=== PATIENT | female | born 1970 | race African-American/Black ===

== ENCOUNTER 2020-03-09 02:18 | Emergency (ER) | payer MEDICAID, OTHER ==
[~2020-03-09] VITALS: Ht 152.4 cm; Wt 77.0 kg
[2020-03-09 03:12] LABS: CLARITY URINE CLOUDY (CLEAR); COLOR URINE YELLOW (YELLOW); KETONES URINE TRACE (NEGATIVE); LEUKOCYTE ESTERASE URINE TRACE (NEGATIVE); NITRITE URINE NEGATIVE (NEGATIVE); OCCULT BLOOD URINE NEGATIVE (NEGATIVE); PROTEIN URINE NEGATIVE (NEGATIVE); SPECIFIC GRAVITY URINE 1.032 (1.005-1.030); UROBILINOGEN URINE 0.2 E.U./dL (0.2-1.0)
[2020-03-09] MEDS ORDERED: MORPHINE SULFATE 4 MG/ML CPJ (NOT FOR IM USE) IV STA (03:35)
[2020-03-09] MEDS ORDERED: FAMOTIDINE 20MG/2ML VIAL IV STA (03:35)
[2020-03-09] MEDS ORDERED: SODIUM CHLORIDE 0.9% 1,000 ML IV ONE (03:35)
[2020-03-09] MEDS ORDERED: DIPHENHYDRAMINE 50MG/ML VIAL IV ONE (03:45)
[2020-03-09] MEDS ORDERED: PROMETHAZINE HCL 25MG SUPP PR ONE (03:45)
[2020-03-09] MEDS ORDERED: IOHEXOL-300 100 ML BOTTLE ONE (04:13)
[2020-03-09] MEDS ORDERED: DIATR MEGLU/DIATRIZOATE SOLN 30ML ONE (04:13)
[2020-03-09 04:34] LABS: BASOPHILS % 1.3 % (0.0-2.0); EOSINOPHILS % 3.2 % (0.0-5.0); HEMATOCRIT. 29.9 % (36.0-48.0); HEMOGLOBIN. 9.9 g/dL (12.0-16.0); LYMPHOCYTES % 50.6 % (20.0-50.0); MEAN CORPUSCULAR HEMOGLOBIN 27.9 pg (28.0-32.0); MONOCYTES % 8.3 % (2.0-8.0); NEUTROPHILS % 36.6 % (40.0-76.0); RED BLOOD CELL COUNT 3.56 mill/uL (4.2-5.4); RED CELL DISTRIBUTION WIDTH 17.3 % (11.6-14.6)
[2020-03-09 04:40] LABS: CHLORIDE 108 mEq/L (98-107)
[2020-03-09] MEDS ORDERED: FENTANYL CITRATE/PF 50MCG/ML 2ML VIAL IV ONE (04:45)
[2020-03-09 05:11] LABS: MEAN PLATELET VOLUME 7.9 fl (7.4-10.4); PLATELET 211 x1000/uL (130-400)
[2020-03-09 06:20] VITALS: BP 148/98
== END 2020-03-09 06:37 | disposition home or self-care (01) ==
LOC: ER 03:47
DX: G89.29 Other chronic pain (principal); R10.84 Generalized abdominal pain; R11.2 Nausea with vomiting, unspecified; G43.909 Migraine, unspecified, not intractable, without status migrainosus; Z86.711 Personal history of pulmonary embolism; Z88.6 Allergy status to analgesic agent; Z98.84 Bariatric surgery status; Z90.49 Acquired absence of other specified parts of digestive tract; Z79.01 Long term (current) use of anticoagulants; Z88.0 Allergy status to penicillin
CPT/HCPCS: 36415; 74177; 80053; 81003; 81025; 83605; 83690; 85025; 96361; 96374; 96375; 99285; J1200; J2270; J3010; J3490; J7030; Q9963; Q9967

== ENCOUNTER 2020-04-04 04:42 | Emergency (ER) | payer MEDICAID ==
[~2020-04-04] VITALS: Ht 152.4 cm; Wt 77.0 kg
[2020-04-04] MEDS ORDERED: SODIUM CHLORIDE 0.9% 1,000 ML IV ONE (06:54)
[2020-04-04] MEDS ORDERED: MORPHINE SULFATE 4 MG/ML CPJ (NOT FOR IM USE) IV STA (06:54)
[2020-04-04 07:29] LABS: CLARITY URINE CLEAR (CLEAR); COLOR URINE YELLOW (YELLOW); KETONES URINE NEGATIVE (NEGATIVE); LEUKOCYTE ESTERASE URINE 2+ (NEGATIVE); NITRITE URINE NEGATIVE (NEGATIVE); OCCULT BLOOD URINE NEGATIVE (NEGATIVE); PH URINE 6.5 (4.5-8.0); PROTEIN URINE NEGATIVE (NEGATIVE); SPECIFIC GRAVITY URINE 1.011 (1.005-1.030); UROBILINOGEN URINE 0.2 E.U./dL (0.2-1.0)
[2020-04-04 07:30] LABS: BASOPHILS % 1.1 % (0.0-2.0); CHLORIDE 109 mEq/L (98-107); EOSINOPHILS % 0.2 % (0.0-5.0); HEMATOCRIT. 25.3 % (36.0-48.0); HEMOGLOBIN. 8.3 g/dL (12.0-16.0); LYMPHOCYTES % 10.2 % (20.0-50.0); MEAN CORPUSCULAR HEMOGLOBIN 26.1 pg (28.0-32.0); MEAN CORPUSCULAR VOLUME 80.2 fL (81.0-99.0); MEAN PLATELET VOLUME 8.8 fl (7.4-10.4); MONOCYTES % 1.8 % (2.0-8.0); NEUTROPHILS % 86.7 % (40.0-76.0); PLATELET 210 x1000/uL (130-400); RED BLOOD CELL COUNT 3.16 mill/uL (4.2-5.4); RED CELL DISTRIBUTION WIDTH 17.4 % (11.6-14.6)
[2020-04-04 07:43] LABS: HCG SCREEN NEGATIVE
[2020-04-04] MEDS ORDERED: PROMETHAZINE HCL 25MG TABLET PO STA (07:54)
[2020-04-04] MEDS ORDERED: MORPHINE SULFATE 2 MG/ML CPJ (NOT FOR IM USE) IV ONE (08:00)
[2020-04-04 10:00] VITALS: BP 155/96
[2020-04-04] MEDS ORDERED: IOHEXOL-300 100 ML BOTTLE ONE (11:49)
== END 2020-04-04 11:07 | disposition home or self-care (01) ==
LOC: ER 04:42
DX: R10.9 Unspecified abdominal pain (principal); Z88.0 Allergy status to penicillin; Z88.6 Allergy status to analgesic agent; Z88.8 Allergy status to other drugs, medicaments and biological substances; Z90.49 Acquired absence of other specified parts of digestive tract; Z98.84 Bariatric surgery status; Z98.890 Other specified postprocedural states
CPT/HCPCS: 36415; 71045; 74177; 80053; 81003; 83690; 84703; 85025; 93005; 96361; 96374; 96376; 99285; J2270; J7030; Q0169; Q9967

== ENCOUNTER 2020-04-13 21:37 | Emergency (ER) | payer MEDICAID ==
[~2020-04-13] VITALS: Ht 152.4 cm; Wt 77.0 kg
[2020-04-14] MEDS ORDERED: MORPHINE SULFATE 4 MG/ML CPJ (NOT FOR IM USE) IV STA (01:28)
[2020-04-14] MEDS ORDERED: DIPHENHYDRAMINE 50MG/ML VIAL IV ONE (01:30)
[2020-04-14 02:53] LABS: HEMOGLOBIN. 7.8 g/dL (12.0-16.0); MEAN CORPUSCULAR VOLUME 79.7 fL (81.0-99.0); MEAN PLATELET VOLUME 7.9 fl (7.4-10.4); PLATELET 189 x1000/uL (130-400); RED BLOOD CELL COUNT 3.01 mill/uL (4.2-5.4); RED CELL DISTRIBUTION WIDTH 17.8 % (11.6-14.6)
[2020-04-14 03:00] LABS: CHLORIDE 105 mEq/L (98-107)
[2020-04-14] MEDS ORDERED: MORPHINE SULFATE 4 MG/ML CPJ (NOT FOR IM USE) IV ONE (06:00)
[2020-04-14 06:41] VITALS: BP 125/70
[2020-04-14 08:13] LABS: PLATELET ESTIMATE NORMAL
== END 2020-04-14 06:47 | disposition home or self-care (01) ==
LOC: ER 21:37
DX: I82.591 Chronic embolism and thrombosis of other specified deep vein of right lower extremity (principal); G89.29 Other chronic pain; R10.9 Unspecified abdominal pain; Z90.49 Acquired absence of other specified parts of digestive tract; Z98.890 Other specified postprocedural states; Z88.0 Allergy status to penicillin; Z88.8 Allergy status to other drugs, medicaments and biological substances; Z88.6 Allergy status to analgesic agent
CPT/HCPCS: 36415; 71045; 80053; 84484; 85025; 93005; 93971; 96374; 96375; 96376; 99285; J1200; J2270

== ENCOUNTER 2021-11-21 20:24 | Inpatient (IN) | payer MEDICAID ==
[~2021-11-21] VITALS: Ht 152.4 cm; Wt 68.0 kg
[2021-11-21] MEDS ORDERED: MORPHINE SULFATE 4 MG/ML CPJ (NOT FOR IM USE) IV ONE (23:00)
[2021-11-21] MEDS ORDERED: PANTOPRAZOLE SODIUM 40 MG/VIAL IV ONE (23:00)
[2021-11-22 00:04] LABS: BASOPHILS % 0.9 % (0.0-2.0); HEMATOCRIT. 23.4 % (36.0-48.0); LYMPHOCYTES % 18.1 % (20.0-50.0); MEAN CORPUSCULAR HEMOGLOBIN 29.6 pg (28.0-32.0); MEAN PLATELET VOLUME 7.4 fl (7.4-10.4); MONOCYTES % 6.7 % (2.0-8.0); NEUTROPHILS % 73.3 % (40.0-76.0); PLATELET 230 x1000/uL (130-400); RED BLOOD CELL COUNT 2.69 mill/uL (4.2-5.4); RED CELL DISTRIBUTION WIDTH 15.3 % (11.6-14.6)
[2021-11-22 00:13] LABS: INR 1.4; PROTHROMBIN TIME 14.4 sec (9.6-11.0)
[2021-11-22 00:43] LABS: CHLORIDE 110 mEq/L (98-107)
[2021-11-22] MEDS ORDERED: PROMETHAZINE HCL 25MG TABLET PO PRN (02:00)
[2021-11-22 04:00] VITALS: BP 122/71
[2021-11-22] MEDS ORDERED: OCTREOTIDE 1,000 MCG in SODIUM CHLORIDE 0.9% 98 ML IV SCH (04:00)
[2021-11-22] MEDS ORDERED: OCTREOTIDE 1,000 MCG in SODIUM CHLORIDE 0.9% 100 ML IV SCH (04:00)
== END 2021-11-22 05:09 | disposition left against medical advice (07) | DRG 253 ==
LOC: ER 20:24 → MICUSO 11-22 03:15 → EDBEDREQ 11-22 03:16
PROVIDERS: ADMIT Internal Medicine; ATTEND Internal Medicine
DX: K92.0 Hematemesis (principal); K31.84 Gastroparesis; R10.9 Unspecified abdominal pain; Z86.718 Personal history of other venous thrombosis and embolism; Z88.0 Allergy status to penicillin; Z90.49 Acquired absence of other specified parts of digestive tract; Z98.84 Bariatric surgery status; Z88.8 Allergy status to other drugs, medicaments and biological substances
CPT/HCPCS: 36415; 80053; 85025; 86850; 86900; 99285; C9113; J2270; J2354; J7050